=== PATIENT | male | born 1935 | race Caucasian/White ===

== ENCOUNTER 2021-09-17 06:38 | Day surgery (SDCO) | payer MEDICARE ==
[~2021-09-17] VITALS: Ht 188 cm; Wt 86.7 kg
[2021-09-17 06:56] LABS: BASOPHIL 0.4 % (0-2); EOSINOPHIL 0.2 % (0-7); HCT 38.7 % (42.0-52.0); HGB 12.2 g/dl (13.2-18.0); LYMPHOCYTE 22.6 % (15-48); MCH 29.8 pg (25.0-31.0); MCHC 31.5 g/dL (32.0-36.0); MCV 94.4 fL (78.0-100.0); MONOCYTE 2.2 % (0-12); NEUTROPHIL 71.7 % (41-80); NRBC 0; PLT 66 K/uL (150-400); RDW 19.9 % (11.5-14.0); WBC 5.4 K/uL (4.0-10.5)
[2021-09-17 07:19] LABS: ALBUMIN 3.9 g/dL (3.4-5.0); BILIRUBIN - TOTAL 1.9 mg/dL (0.2-1.0); BUN/CREAT RATIO (CALC) 23.6 RATIO; CREATININE 0.72 mg/dL (0.67-1.17); GLOBULIN (CALCULATION) 3.1 g/dL; POTASSIUM 4.2 mmol/L (3.5-5.1)
[2021-09-17 07:32] LABS: LACTIC ACID 1.2 mmol/L (0.4-1.9)
[2021-09-17 07:43] LABS: INR 1.26 (0.9-1.2); PROTHROMBIN TIME 15.1 SECONDS (11.8-13.4)
[2021-09-17 07:45] LABS: BILIRUBIN NEGATIVE (NEGATIVE); BLOOD 2+ Ery/uL (NEGATIVE); CLARITY CLEAR (CLEAR); COLOR YELLOW (YELLOW); GLUCOSE (U) NORMAL (NORMAL); LEUKOCYTES NEGATIVE Leu/uL (NEGATIVE); NITRITE NEGATIVE (NEGATIVE); PROTEIN 1+ mg/dL (NEGATIVE); SPECIFIC GRAVITY >=1.030 (1.001-1.030); UROBILINOGEN 0.2 mg/dL (0.2-1.0); pH 5.5 (5.0-9.0)
[2021-09-17 08:00] LABS: BACTERIA TRACE; MUCOUS TRACE; URINARY WBC RARE
[2021-09-18] MEDS ORDERED: ALDACTONE25 MG PO (12:28)
[2021-09-18] MEDS ORDERED: FUROSEMIDE 20MG20 MG PO (12:28)
[2021-09-18] MEDS ORDERED: CHILDREN'S ASPI81 MG PO (12:28)
[2021-09-18] MEDS ORDERED: COREG 6.25MG6.25 MG PO (12:28)
[2021-09-18] MEDS ORDERED: ELIQUIS5 MG PO (12:28)
[2021-09-18] MEDS ORDERED: LIPITOR20 MG PO (12:28)
== END 2021-09-18 14:38 | disposition home or self-care (01) ==
LOC: FER 06:38 → FTCU 09:28
PROVIDERS: Emergency Medicine; ADMIT Hospitalist
DX: I48.91 Unspecified atrial fibrillation (principal); I16.0 Hypertensive urgency; I11.0 Hypertensive heart disease with heart failure; I50.9 Heart failure, unspecified; E78.5 Hyperlipidemia, unspecified; I25.10 Atherosclerotic heart disease of native coronary artery without angina pectoris; I25.5 Ischemic cardiomyopathy; R77.8 Other specified abnormalities of plasma proteins; M19.90 Unspecified osteoarthritis, unspecified site; Z79.01 Long term (current) use of anticoagulants; Z79.82 Long term (current) use of aspirin; Z79.899 Other long term (current) drug therapy; Z95.1 Presence of aortocoronary bypass graft; Z95.5 Presence of coronary angioplasty implant and graft; Z95.810 Presence of automatic (implantable) cardiac defibrillator; Z20.822 Contact with and (suspected) exposure to COVID-19
CPT/HCPCS: 36415; 71045; 80053; 81001; 83605; 84484; 85025; 85610; 87040; 93005; G0378; J1160; J1940; J7030; U0002